=== PATIENT | male | born 1980 | race Caucasian/White ===

== ENCOUNTER 2018-12-13 17:47 | Emergency (ER) | payer BC ==
[~2018-12-13] VITALS: Ht 200.7 cm; Wt 147.4 kg
[~2018-12-13 17:47] MED LIST: HYDR-3164 PO
[2018-12-13 18:10] VITALS: BP 144/83
[2018-12-13] MEDS ORDERED: SMZ/TMP 800/160MG TABLET. PO ONE (18:15)
[2018-12-13] MEDS ORDERED: HYDR-2765 PO (18:20)
[2018-12-13] MEDS ORDERED: SULF1TAB24 PO (18:20)
--- NOTE | 2018-12-13 18:20 | PHYS DOC ---
Past Medical History Past Medical History: Abscess (JOEY WEI APRN) Additional Past Surgical Histo: left bicep tendon repair (JOEY WEI APRN) Alcohol Use: Rarely Drug Use: None (JOEY WEI APRN) Adult General Chief Complaint Chief Complaint: WOUND CHECK HPI HPI Patient is a 38 year old male who presents to the ED today with an abscess on the right scapula that began a week ago, patient states he was seen at urgent care, was started on cephalexin after an I&D was done, came back to the ED 2 days ago, we did another I&D and packed the wound. He is here for wound check. Denies any fever. He states is still taking the cephalexin. (JOEY WEI APRN) Review of Systems Review of Systems Constitutional: Denies fever or chills [] Musculoskeletal: Denies back pain or joint pain [] Integument: Reports abscess to the right scapular region Neurologic: Denies headache, focal weakness or sensory changes [] All other systems were reviewed and found to be within normal limits, except as documented in this note. (JOEY WEI APRN) Current Medications Current Medications Current Medications Medications (Trade) Dose Ordered Sig/Rahul Start Time Stop Time Status Last Admin Dose Admin Ceftriaxone Sodium (Rocephin Im) 1 gm 1X ONCE 12/13/18 18:45 12/13/18 18:46 DC 12/13/18 18:26 1 GM Lidocaine HCl (Xylocaine-Mpf 1% 2ml Vial) 2 ml 1X ONCE 12/13/18 18:45 12/13/18 18:46 DC 12/13/18 18:25 2 ML Lidocaine/Sodium Bicarbonate (Buffered Lidocaine 1%) 3 ml 1X ONCE 12/13/18 18:45 12/13/18 18:46 DC 12/13/18 18:25 3 ML Morphine Sulfate (Morphine Sulfate) 5 mg 1X ONCE 12/13/18 18:45 12/13/18 18:46 DC 12/13/18 18:26 5 MG Trimethoprim/ Sulfamethoxazole (Bactrim Ds) 1 tab 1X ONCE 12/13/18 18:15 12/13/18 18:16 DC 12/13/18 18:24 1 TAB (RON MILLER DO) Allergies Allergies Allergies Coded Allergies Type Severity Reaction Last Updated Verified No Known Drug Allergies 12/11/18 No (RON MILLER DO) Physical Exam Physical Exam Constitutional: Well developed, well nourished, no acute distress, non-toxic appearance. [] Skin: Right below the scapula there is an open wound with packing, there is moderate draining on the packing as well as surrounding the wound. There is mild cellulitis approximately 3 cm surrounding this wound. The drainage is yellow and purulent. Back: No tenderness, no CVA tenderness. [] Extremities: No tenderness, no cyanosis, no clubbing, ROM intact, no edema. [] Neurologic: Alert and oriented X 3, normal motor function, normal sensory function, no focal deficits noted. [] Psychologic: Affect normal, judgement normal, mood normal. [] (JOEY WEI APRN) Current Patient Data Vital Signs Vital Signs Date Time Temp Pulse Resp B/P (MAP) Pulse Ox O2 Delivery O2 Flow Rate FiO2 12/13/18 18:26 18 97 Room Air 12/13/18 18:10 98.5 75 144/83 (103) 98.5 (RON MILLER DO) EKG EKG [] (JOEY WEI APRN) Radiology/Procedures Radiology/Procedures Indication: abscess care Procedure: The patient was positioned appropriately. Local anesthesia was 1% buffered lidocaine. The old packing was removed, moderate amount of pus was noted, the wound was squeezed and more pus came out. The wound was cleaned with saline spray until it was clear. The wound was packed with clean gauze. The patient�s tetanus status updated as needed. The patient tolerated the procedure well. Complications: none.[] (JOEY WEI APRN) Course & Med Decision Making Course & Med Decision Making Pertinent Labs and Imaging studies reviewed. (See chart for details) This is a 38-year-old male patient presenting to the ED today with an abscess on the right scapula that was drained 2 days ago, he is here for wound check and packing removal, wound was cleaned and repacked. There is cellulitis around this area. Patient was given Rocephin IM in the ED. He was discharged with Bactrim to take with the cephalexin. The dressing was changed. Instructed to return to the ED in 2 days for wound check and packing removal. Given hydrocodone 7.5/325mg for pain. (JOEY WEI APRN) Dragon Disclaimer Dragon Disclaimer This electronic medical record was generated, in whole or in part, using a voice recognition dictation system. (JOEY WEI APRN) Departure Departure Impression: Primary Impression: Abscess or cellulitis of back Disposition: HOME, SELF-CARE Condition: STABLE Referrals: UNKNOWN PCP NAME (PCP) Follow-up with the ED in 2 days for wound check and packing removal Patient Instructions: Abscess, Cellulitis, [id number] Additional Instructions: You were evaluated in the emergency room for an abscess and cellulitis that is still draining. Please return to the emergency room in 2 days for wound check and packing removal. Please take the cephalexin as well as the Bactrim as prescribed. Keep the affected area clean and dry. You can change the dressing if it soaked. Scripts Sulfamethoxazole/Trimethoprim (BACTRIM DS TABLET) 1 Each Tablet 1 TAB PO BID, #20 TAB Prov: JOEY WEI APRN 12/13/18 Hydrocodone Bit/Acetaminophen (HYDROCODONE-APAP 7.5-325 ) 1 Tab Tablet 1 TAB PO PRN Q6HRS PRN for PAIN, #25 TAB 0 Refills Prov: JOEY WEI APRN 12/13/18 Sulfamethoxazole/Trimethoprim (BACTRIM DS TABLET) 1 Each Tablet 1 TAB PO BID, #20 TAB Prov: JOEY WEI APRN 12/13/18 Attending Signature Attending Signature I have reviewed the PA/SOFTWARE QUALITY TESTER's note and plan of care. I was available for consultation as needed during the patient's visit in the emergency department. I agree with the clinical impression, plan, and disposition. (RON MILLER DO) JOEY WEI APRN Dec 13, 2018 18:20 RON MILLER DO Dec 17, 2018 15:10
[2018-12-13] MEDS ORDERED: MORPHINE SULFATE 10 MG/ML VIAL. IM ONE (18:45)
[2018-12-13] MEDS ORDERED: cefTRIAXone IM 1 GM VIAL IM ONE (18:45)
[2018-12-13] MEDS ORDERED: LIDOCAINE WITH 8.4% SOD BICARB 3 ML DISP.SYRIN. INJ ONE (18:45)
[2018-12-13] MEDS ORDERED: LIDOCAINE 1% PF 2 ML VIAL. INJ ONE (18:45)
== END 2018-12-13 19:01 | disposition home or self-care (01) ==
LOC: ER 17:47
DX: L02.212 Cutaneous abscess of back [any part, except buttock and flank] (principal); L03.312 Cellulitis of back [any part except buttock and flank]
CPT/HCPCS: 96372; 99284; J0696; J2270; 10060